=== PATIENT | female | born 1950 | race Caucasian/White ===

== ENCOUNTER → 2017-03-11 | Day surgery (SDC) | payer BC, OTHER ==
[~2017-03-11] MED LIST: SIMETHICONE 40 MG/0.6 ML ML ONE
[2017-03-11] MEDS: MIDAZOLAM HCL 5 MG/5 ML VIAL ONE ×2 (07:30→07:32)
[2017-03-11] MEDS: fentaNYL CITRATE/PF 100 MCG/2 ML AMP ONE ×2 (07:30→07:32)
[2017-03-11 11:47] VITALS: BP_SYST 102
== END | disposition still patient (30) ==
LOC: SDS 06:05
PROVIDERS: ATTEND Colon & Rectal Surgery
DX: Z09 Encounter for follow-up examination after completed treatment for conditions other than malignant neoplasm (principal); Z87.19 Personal history of other diseases of the digestive system; K57.30 Diverticulosis of large intestine without perforation or abscess without bleeding; I10 Essential (primary) hypertension; E78.5 Hyperlipidemia, unspecified; M19.90 Unspecified osteoarthritis, unspecified site
CPT/HCPCS: 45378; J2250; J3010; J7030